=== PATIENT | male | born 1950 | race African-American/Black ===

== ENCOUNTER 2016-08-21 14:21 | Inpatient (IN) ==
--- NOTE | 2016-08-21 14:42 | Emergency Department Note ---
Disposition Clinical Impression: Ischemic cerebrovascular accident (CVA) of frontal lobe Disposition: Admitted As Inpatient Condition: Fair Time of Disposition: 18:50 Weakness HPI - General Chief complaint: ED Weakness Stated complaint: weakness Time Seen by Provider: 08/21/16 14:28 Source: EMS Mode of arrival: EMS Limitations: no limitations Nursing Notes Reviewed: Yes Vital Signs Reviewed: Yes - History of Present Illness HPI Narrative: 66-year-old male with history of hypertension, hyperlipidemia, GERD, no history of UT or stroke, presents with right hand weakness. Patient states that he had right hand weakness that started 2-3 days ago, he went to the [facility] urgent care where they did a negative CT of his head that showed some mild small vessel disease, but no obvious stroke, he is concerned about a stroke also about possible pinched nerve. Patient had cervical fusion, he thinks C5-C7 that was an anterior approach for left upper extremity paresthesias a few years ago. He has never had any weakness or pain in his right arm until these last few days. He states that his right hand all his fingers seem like they are working slowly. He is unable to have good dexterity when was unable to button his shirt this morning that [facility] He denies facial droop, weakness of his leg, slurred speech. Does not have a history of recent repetitive movement with his right hand, and has no history of carpal tunnel. Pt Subjective Complaint: focal weakness Duration: constant Location: RUE Pain Severity: mild If pain, quality: numbness Improves with: none Worsens with: none Associated symptoms: Reports: denies other symptoms - Related Data Home Medications Medication Instructions Recorded Confirmed Amlodipine [Norvasc] 5 mg PO DAILY 08/21/16 08/21/16 Aspirin [Lo-Dose Aspirin EC] 81 mg PO DAILY 08/21/16 08/21/16 Atorvastatin [Lipitor] 40 mg PO DAILY 08/21/16 08/21/16 Benazepril HCl [Lotensin] 40 mg PO DAILY 08/21/16 08/21/16 Ergocalciferol (VITAMIN D2) 50,000 unit PO QWEEK 08/21/16 08/21/16 [Vitamin D2] GlipiZIDE [Glipizide] 20 mg PO DAILY 08/21/16 08/21/16 Hydrochlorothiazide 25 mg PO DAILY 08/21/16 08/21/16 Metformin [Glucophage] 1,000 mg PO BID 08/21/16 08/21/16 Naproxen Sodium [Aleve] 220 mg PO BID 08/21/16 08/21/16 Allergies Allergy/AdvReac Type Severity Reaction Status Date / Time No Known Allergies Allergy Verified 08/21/16 15:04 Review of Systems: A 14 point ROS was obtained and was negative except as per below or as documented in the HPI. Constitutional: Denies: fever, chills, weakness, weight change Eyes: Denies: eye pain, eye discharge, vision change ENT: Denies: ear pain, throat pain, hearing loss, epistaxis, congestion, Cardiovascular: Denies: chest pain, palpitations, dyspnea on exertion, edema, syncope Respiratory: Denies: cough, dyspnea, wheezes, hemoptysis, stridor Gastrointestinal: Denies: abdominal pain, nausea, vomiting. diarrhea, constipation, hematemesis, hematochezia Genitourinary: Denies: urgency, dysuria, frequency, hematuria Musculoskeletal: Denies: back pain, neck pain, arthralgia, myalgia Integumentary: Denies: rash, abrasion, lesions Neurological right hand weakness, : Denies: headache,numbness, paresthesias, confusion, abnormal gait Psychiatric: Denies: anxiety, depression, suicidal thoughts, homicidal thoughts , Endocrine: Denies: fatigue Hematological/Lymphatic: Denies: easy bleeding, easy bruising Allergic/Immunologic: Denies: facial swelling, urticaria All systems ED: reviewed and negative except as stated. Past Medical History - Past Medical History Attestation: Yes The following information was validated with the patient. Source: patient Physical Exam General: alert and oriented, in NAD, appears stated age, is pleasant and cooperative to exam Head: NCAT, no lesions Eyes: sclera anicteric, conjunctiva normal, PERRLA bilaterally, EOMI Bilaterally Ears: normal inspection, external ear wnl Nose: nasal septum nondeviated, sinuses nontender Throat: good dentition, mucous membranes moist Neck: no lymphadenopathy, trachea midline no deviation, no JVD Resp: CTA bilaterally, no resp distress, symmetric chest rise, no wheezes, rales , or rhonchi bilaterally CV: RRR, normal S1 and S2, no m/g/r, Pulses +2 Rad, +2 DP/PT Back: normal inspection, no tenderness to palpation, Negative CVA tenderness bilaterally Neuro: 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 Otherwise normal neurologic exam A&O3, CN II-XII grossly intact bilaterally, no motor or sensory deficits bilaterally, gait normal, GCS 15 [id number] Ext: normal inspection, symmetric Active and Passive ROM UE and LE bilaterally , no pedal edema bilaterally Psych: normal mood, normal affect Skin: No rashes, skin warm, dry, intact Course Course Narrative: 66-year-old male with right hand weakness, given his weakness seems to be localized he did have some weakness with median and ulnar nerve testing, with good radial nerve testing I wonder if he has neuropathy, or a cervical impingement, we will get an MRI to evaluate his C-spine, I suspect a C6-C7 lesion, he does have a history of cervical fusion however had never had neurologic deficits on this side. Stroke is considered less likely however will get an MRI of his head as well and he does have known small vessel disease with some risk factors including hypertension hyperlipidemia and obesity. CT [facility], - Reevaluation(s) Reevaluation #1: Admitted to Dr Moore, ANGELICA given will consult neuro. - Consultations Consultation #1: SPoke with Dr Storey he recs ASA will see patient in AM. Time: 18:49 Vital Signs Temperature 98.1 F 08/21/16 14:42 Pulse Rate 80 08/21/16 14:42 Respiratory Rate 16 08/21/16 14:42 Blood Pressure 113/73 08/21/16 14:42 O2 Sat by Pulse Oximetry 99 08/21/16 14:42 Temperature 98.1 F 08/21/16 14:42 Pulse Rate 80 08/21/16 15:47 Respiratory Rate 16 08/21/16 15:47 Blood Pressure 135/78 08/21/16 15:47 O2 Sat by Pulse Oximetry 99 08/21/16 15:47 Oxygen Delivery Oxygen Delivery Nasal Cannula Weakness - MDM Narrative Medical decision making narrative: 66-year-old male with right hand weakness, new stroke the left precentral gyrus , admitted to medicine service in stable condition, I did consult neurology in the emergency department. Lab work EKG are in the paperwork sent from the [facility], reviewed and negative. - Differential Diagnosis Differential Diagnosis: Likely: acute myocardial infarction, sepsis/infection, metabolic - Medical Records Medical records reviewed: Yes I reviewed the patient's medical records. - Lab Data Lab results reviewed: Yes I reviewed the patient's lab results. Lab results narrative: Labs were reviewed and were normal, troponin within normal limits, CBC CMP unremarkable, please see skin intact mentation from the [facility] to review. - Radiology Data Radiology results reviewed: Yes I reviewed the patient's radiology results. - EKG Data EKG attestation: Yes I reviewed and interpreted this EKG. EKG shows normal: sinus rhythm Rate: normal (Review 12-lead EKG from the [facility] no significant ST segment elevations or depressions. Normal sinus rhythm) Rhythm: NSR NIH Stroke Scale - Level of Consciousness LOC: Alert - LOC Questions LOC Questions: Answers both correctly - LOC Commands LOC Commands: Performs both correctly - Best Gaze Best Gaze: Normal - Visual Visual: No visual loss - Facial Palsy Facial Palsy: Normal - Motor Arms Motor Arm-Left: No drift for 10 seconds Motor Arm-Right: Drift, does NOT hit bed - Motor Legs Motor Leg-Left: No drift for 5 seconds Motor Leg-Right: No drift for 5 seconds - Limb Ataxia Limb Ataxia: Absent of affected limb too weak to perform exam - Sensory Sensory: Normal - Best Language Best Language: No aphasia - Dysarthria Dysarthria: Normal - Extinction and Inattention Extinction and Inattention: Normal - NIHSS Total Score NIHSS Total Score: 1
--- NOTE | 2016-08-21 15:43 | Emergency Department Note ---
Disposition Clinical Impression: Ischemic cerebrovascular accident (CVA) of frontal lobe Disposition: Admitted As Inpatient Condition: Fair General Adult HPI - General Chief complaint: ED Neuro Symptoms/Deficit Stated complaint: weakness Time Seen by Provider: 08/21/16 14:28 Source: EMS Mode of arrival: EMS Limitations: no limitations - History of Present Illness Pain Scale: 0 - Related Data Home Medications Medication Instructions Recorded Confirmed Amlodipine [Norvasc] 5 mg PO DAILY 08/21/16 08/21/16 Benazepril HCl [Lotensin] 40 mg PO DAILY 08/21/16 08/21/16 Ergocalciferol (VITAMIN D2) 50,000 unit PO QWEEK 08/21/16 08/21/16 [Vitamin D2] GlipiZIDE [Glipizide] 20 mg PO DAILY 08/21/16 08/21/16 Hydrochlorothiazide 25 mg PO DAILY 08/21/16 08/21/16 Naproxen Sodium [Aleve] 220 mg PO BID 08/21/16 08/21/16 Previous Rx's Medication Instructions Recorded Aspirin [Lo-Dose Aspirin EC] 81 mg PO DAILY #30 tablet. 08/22/16 Atorvastatin [Lipitor] 40 mg PO DAILY #30 tablet 08/22/16 Metformin [Glucophage] 1,000 mg PO BID #40 tablet 08/22/16 Allergies Allergy/AdvReac Type Severity Reaction Status Date / Time No Known Allergies Allergy Verified 08/21/16 15:04 Past Medical History - Past Medical History Medical history: Reports: diabetes, GERD, hyperlipidemia, hypertension Psychiatric history: Reports: no psych history - Social History Smoking Status: Never smoker Smokeless Tobacco Status: No Alcohol use: Reports: none Drug use: Reports: none Physical Exam - General Limitations: no limitations General appearance: alert, in no apparent distress Course - Reevaluation(s) Reevaluation #1: I saw the patient with the resident, Dr. Alonso. Patient presents with weakness and loss of function of his right hand. On my physical exam he clearly has weakness to all function of the right hand and also feels there is some weakness to pronation against resistance. Distal neurologic and vascular examination are normal. Patient says he woke up from sleep with this problem but never felt any numbness or tingling. The question is whether this is an upper motor neuron issue or a lower motor neuron issue. I do not think the exam and story are clear enough to help us decide. We will get the MRI of the brain and cervical spine. Time: 15:43 Reevaluation #2: MRI shows CVA. Patient is not a candidate for TPA or emergent intervention given that his symptoms are two days old. He will be admitted to the hospital. Time: 17:40 Vital Signs Temperature 98.1 F 08/21/16 14:42 Pulse Rate 80 08/21/16 14:42 Respiratory Rate 16 08/21/16 14:42 Blood Pressure 113/73 08/21/16 14:42 O2 Sat by Pulse Oximetry 99 08/21/16 14:42 Temperature 98.4 F 08/22/16 19:06 Pulse Rate 97 08/22/16 19:06 Respiratory Rate 18 08/22/16 19:06 Blood Pressure 123/69 08/22/16 19:06 O2 Sat by Pulse Oximetry 97 08/22/16 19:06 Oxygen Delivery Oxygen Delivery Room Air Medical Decision Making - Lab Data Result diagrams: 08/22/16 05:31 Attestation Statement - Attestation Attestation: I, Dr. Calderon, examined this patient face to face and my medical decision- making was reviewed with Dr. Cheng, Resident Physician. I agree with the documented findings, disposition and treatment plan as described except to the extent set forth below. Please see my progress note for details.
[2016-08-21] MEDS ORDERED: Aspirin 81 MG TAB.CHEW PO ONE (17:23)
[2016-08-21] MEDS ORDERED: Acetaminophen 325 MG TABLET PO PRN (20:35)
[2016-08-21] MEDS ORDERED: *HR* Morphine 2 MG/ML SYRINGE IVP PRN (20:35)
[2016-08-21] MEDS ORDERED: Ondansetron 4 MG/2 ML VIAL IVP PRN (20:35)
[2016-08-21] MEDS ORDERED: Naloxone 0.4 MG/ML INJ IVP PRN (20:35)
[2016-08-21] MEDS ORDERED: D5% in Water 1,000 ML IV PRN (20:39)
[2016-08-21] MEDS ORDERED: Dextrose Gel 15 GM PO PRN ×2 (20:39)
[2016-08-21] MEDS ORDERED: *HR* Dextrose 50 % in Water (Syg) 50 ML SYRINGE IVP PRN (20:39)
--- NOTE | 2016-08-21 20:43 | Internal Med History&Physical ---
<Rosendo Hanson - Last Filed: 08/21/16 20:38> Date of Encounter: 08/21/16 Time of Encounter: 08:10 Assessment and Plan (1) CVA (cerebral vascular accident) Current visit: Yes Status: Acute With residual right upper extremity weakness MRI: acute infarct of the left precentral gyrus. Further workup includes: Echocardiogram, Carotid ultrasound. Labs: HbA1c, and lipid panel in the AM Consult to neurology (Dr. Storey was contacted by the ED) Consult to physical therapy Restart the patient on Aspirin The patient was admitted as an inpatient as he will stay more than 2 midnights. He is at high risk for an additional CVA. Qualifiers: CVA mechanism: occlusion Precerebral and cerebral artery: unspecified cerebral artery Qualified Code(s): I63.50 - Cerebral infarction due to unspecified occlusion or stenosis of unspecified cerebral artery (2) Diabetes Current visit: Yes Status: Acute Abo-dbvxond-gybteyxbi diabetes Type 2 Continue patients metformin sliding scale insulin HbA1c In the AM Qualifiers: Diabetes mellitus type: type 2 Diabetes mellitus complication status: without complication Diabetes mellitus terminologist insulin use: without terminologist use Qualified Code(s): E11.9 - Type 2 diabetes mellitus without complications (3) Essential hypertension Current visit: Yes Status: Acute Continue home medications of amlodipine, benazepril, and HCTZ. Well controlled in the ED at 127/72 (4) Hyperlipidemia Current visit: Yes Status: Acute Lipid panel in the morning. Continue home medication of Lipitor Qualifiers: Hyperlipidemia type: unspecified Qualified Code(s): E78.5 - Hyperlipidemia , unspecified (5) Morbid obesity with BMI of 40.0-44.9, adult Current visit: Yes Status: Acute (6) DVT prophylaxis Current visit: Yes Status: Acute SQ Heparin Omeprazole for GI prophylaxis. Time spent on this admission 40mins. DNR [facility] DNI Internal Medicine - H&P: HPI Chief complaint: right hand weakness Admitted From: Emergency Dept Plans for Post Hospital Care: Home History of present illness: Mr. Thompson is a 66 year old male with PMH of HTN, HLD, GERD, DM type 2 who presented to the urgent care at the [facility] for right hand weakness. The patient was sent to [facility] for further evaluation. The patient states that he was having weakness of his right hand which started 2 to 3 days ago. His who was in the room states he was talking more slowly around the time he was having the right hand weakness, but this resolved. There was no slurring of his speech. Denies any facial droop, leg weakness, headache. He states the earlier today he was unable to the button shirt due to the weakness of his right hand and that is what caused him to come in for further evaluation. He has never had an NV or a stroke previously. The patient was previously on a baby aspirin, but had stopped this drug in April for a cervical fusion procedure, and not restarted since then. Past Med Surg Social Fam HX - Past Medical History Medical history: diabetes, GERD, hyperlipidemia, hypertension Psychiatric history: no psych history - Past Surgical History Surgical History: orthopedic, other (C6-C7 spinal fusion, tonsillectomy, cyst removal) - Social History Smoking Status: Never smoker Smokeless Tobacco Status: No Alcohol use: none Drug use: none - Family History Mother Living Status: Hx Family Musculoskeletal Disorders: Yes (Rheumatoid arthritis) Hx Family Neurologic Disorders: Yes (Stroke) Father Living Status: Hx Family Cancer: Yes (prostate) Internal Medicine - H&P: Meds Amlodipine [Norvasc] 5 mg PO DAILY 08/21/16 [History] Aspirin [Lo-Dose Aspirin EC] 81 mg PO DAILY 08/21/16 [History] Atorvastatin [Lipitor] 40 mg PO DAILY 08/21/16 [History] Benazepril HCl [Lotensin] 40 mg PO DAILY 08/21/16 [History] Ergocalciferol (VITAMIN D2) [Vitamin D2] 50,000 unit PO QWEEK 08/21/16 [History] GlipiZIDE [Glipizide] 20 mg PO DAILY 08/21/16 [History] Hydrochlorothiazide 25 mg PO DAILY 08/21/16 [History] Metformin [Glucophage] 1,000 mg PO BID 08/21/16 [History] Naproxen Sodium [Aleve] 220 mg PO BID 08/21/16 [History] Allergies No Known Allergies Allergy (Verified 08/21/16 15:04) All Systems PM: A 10-system review of systems was performed and is negative for pertinent findings except as documented above in the HPI. - Constitutional Constitutional: no chills, no fever(s), no night sweats - EENT Eyes: change in vision (Right eye blurriness, resolved spontaneously), no discharge, no pain, no photophobia Ears: no ear discharge, no ear pain, no tinnitus Nose, mouth and throat: no dysphagia, no nasal discharge, no neck pain, no sore throat - Cardiovascular Cardiovascular ROS IM: no chest pain, no diaphoresis, no dyspnea, no lightheadedness, no palpitations, no syncope - Respiratory Respiratory: no cough, no dyspnea, no wheezing, no excessive phlegm production - Gastrointestinal Gastrointestinal: no abdominal pain, no diarrhea, no hematemesis, no hematochezia, no melena, no nausea, no vomiting - Musculoskeletal Musculoskeletal ROS IM: no numbness, no tingling - Integumentary Integumentary IM: no rash, no unusual bruising - Neurological Neurological ROS: focal weakness (right hand), no confusion, no convulsions, no numbness, no tingling, no tremor(s) - Hematologic/Lymphatic Hematologic/Lymphatic: no easy bruising - Constitutional Vitals: Temp Pulse Resp BP Pulse Ox 98.1 F 81 18 133/76 99 08/21/16 14:42 08/21/16 18:57 08/21/16 18:57 08/21/16 18:52 08/21/16 16:52 General appearance: Present: A&O X 3, pleasant, no acute distress - Head Head exam: Present: atraumatic, normocephalic - Eye Eye exam: Present: PERRL, conjuntiva pink, sclera anicteric Pupils: Present: PERRL - Neck Neck exam general surgery: Present: supple, trachea midline. Absent: lymphadenopathy - Respiratory Respiratory exam: Present: CTAB. Absent: accessory muscle use, rales, rhonchi, wheezes - Cardiovascular Cardiovascular exam: Present: RRR, +S1, +S2. Absent: diastolic murmur, gallop, rubs, systolic murmur Additional comments: No carotid bruits - Expanded Cardiovascular Exam Peripheral pulses: 2+: Radial (L), Radial (R) - GI/Abdominal GI/Abdominal exam: Present: normal bowel sounds, soft, no peritoneal signs. Absent: distended, tenderness Additional comments: obese - Extremities Exam Extremities exam: Present: warm, radial pulses palpable and symetrical. Absent : calf tenderness, cyanotic, pedal edema - Neurological Exam Neurological exam: Present: CN II-XII intact, oriented X3, pronater drift. Absent: strengths equal and symetr throughout, facial droop, speech deficit - Expanded Neurological Exam Cerebellar function: finger to nose: Abnormal Right (slow) Sensory exam: upper extremity light touch: Normal Neuro motor strength exam: LUE: 5, RUE: 4 (brand director strenth only. biceps and shoulder 5/5), LLE: 5, RLE: 5 - Skin Skin exam: Present: dry, intact - Attending Attestation I examined this patient and my medical decision-making was reviewed with the SALES SERVICE SUPERVISOR/PA/Advanced Practice Nurse/Resident Physician. I agree with the documented findings, disposition and treatment plan as described except to the extent set forth below. <Chavo Henriquez H - Last Filed: 08/21/16 21:02> Date of Encounter: 08/21/16 Internal Medicine - H&P: HPI History of present illness: Mr. Thompson is a 66 year old male All Systems PM: A 10-system review of systems was performed and is negative for pertinent findings except as documented above in the HPI. - Constitutional Vitals: Temp Pulse Resp BP Pulse Ox 98.1 F 81 18 133/76 99 08/21/16 14:42 08/21/16 18:57 08/21/16 18:57 08/21/16 18:52 08/21/16 16:52 - Attending Attestation Acute CVA Not candidate for TPA
[2016-08-21] MEDS ORDERED: 0.9 % Sodium Chloride 1,000 ML IVC SCH (20:45)
[2016-08-21] MEDS ORDERED: Insulin LISPRO 300 UNITS/3 ML VIAL SQ SCH (21:00)
[2016-08-21] MEDS: Aspirin 81 MG TAB.CHEW PO SCH (22:12)
[2016-08-21] MEDS: *HR* Heparin 5,000 UNIT/ML VIAL SQ SCH (22:12)
[2016-08-22] MEDS: *HR* Heparin 5,000 UNIT/ML VIAL SQ SCH ×2 (06:01→15:20)
[2016-08-22 06:04] LABS: BUN/Creatinine Ratio 15 (6-26); Blood Urea Nitrogen 12 mg/dL (8-26); Calcium 9.1 mg/dL (8.6-10.8); Carbon Dioxide 27 mEq/L (19-29); Chloride 105 mEq/L (98-109); Chol/HDL Ratio 4.3 (0-4.9); Cholesterol 104 mg/dL (< 200); Glucose 256 mg/dL (70-99); HDL Cholesterol 24 mg/dL (40-59); LDL Cholesterol,Calculated 60 mg/dL (0-99); Osmolality,Calculated 295 (280-300); Potassium 3.5 mEq/L (3.5-4.5); Sodium 138 mEq/L (136-145); Triglycerides 98 mg/dL (< 150); eGFR For African Americans > 60 (> 60); eGFR For Non-African Americans > 60 (> 60)
[2016-08-22] MEDS ORDERED: *HR* GlipiZIDE XL (24 HR) 10 MG TABLET PO SCH (09:00)
[2016-08-22] MEDS ORDERED: Lisinopril 20 MG TABLET PO SCH (09:00)
[2016-08-22] MEDS ORDERED: amLODIPine 5 MG TABLET PO SCH (09:00)
[2016-08-22] MEDS ORDERED: hydroCHLOROthiazide 25 MG TABLET PO SCH (09:00)
--- NOTE | 2016-08-22 10:05 | Neurology - Consult Note ---
<Oren Urbano - Last Filed: 08/22/16 13:07> Date of Encounter: 08/22/16 Time of Encounter: 11:54 Assessment and Plan (1) CVA (cerebral vascular accident) Current Visit: Yes Status: Acute Brain MRI 08/21/16: Acute infarct within the left precentral gyrus. He reports a purely motor loss to the right hand consistent with infarction in his left precentral gyrus. Recommended restart the patient on low-dose aspirin. Echo and carotid Doppler studies have been performed, pending results. Recommend PT for right hand weakness. Patient has family at home that are able to assist him with ADLs. Echo reports no evidence of PFO. Doppler study has not resulted. Stable from a neurologic standpoint for discharge once his carotid US has resulted and is wnl. Will discuss with Dr. Storey for further recommendations. Qualifiers: CVA mechanism: occlusion Precerebral and cerebral artery: unspecified cerebral artery Qualified Code(s): I63.50 - Cerebral infarction due to unspecified occlusion or stenosis of unspecified cerebral artery History of Present Illness Chief complaint: CVA HPI: Mr. Thompson is a 66 year old male hx of HTN, HLD, DMII who initially presented to the hospital due to right hand weakness. Patient reports that he was having weakness in his right hand starting 2-3 days ago. Patient was seen at the [facility] and sent to the emergency department for evaluation. Reportedly had a negative CT scan of the head there. His reports during the right hand weakness he also seemed to be talking more slowly but that resolved. No history of TIA or CVA in the past. Of note he was on a low-dose aspirin but stopped taking it for a spinal procedure in April and never restarted. Patient reports he had an anterior spinal fusion of C6-C7 and was told to stop taking his aspirin until he was told to restart it. Patient had a brain MRI in the emergency department which showed an acute infarct of the left precentral gyrus. Patient admitted to the hospital for full CVA workup. He currently states that he still feels weak in his right hand but it has improved. He is right-hand dominant. He denies any numbness, tingling, paresthesias, headaches , visual changes, slurred speech or any other complaints. Past Med Surg Social Fam HX - Past Medical History Attestation: Yes The following information was validated with the patient. Source: patient, old records reviewed Medical history: diabetes, GERD, hyperlipidemia, hypertension Psychiatric history: no psych history - Past Surgical History Surgical History: orthopedic, other - Social History Smoking Status: Never smoker Smokeless Tobacco Status: No Alcohol use: none Drug use: none - Family History Mother Living Status: Hx Family Musculoskeletal Disorders: Yes (Rheumatoid arthritis) Hx Family Neurologic Disorders: Yes (Stroke) Father Living Status: Hx Family Cancer: Yes (prostate) Medications and Allergies Amlodipine [Norvasc] 5 mg PO DAILY 08/21/16 [History] Aspirin [Lo-Dose Aspirin EC] 81 mg PO DAILY 08/21/16 [History] Atorvastatin [Lipitor] 40 mg PO DAILY 08/21/16 [History] Benazepril HCl [Lotensin] 40 mg PO DAILY 08/21/16 [History] Ergocalciferol (VITAMIN D2) [Vitamin D2] 50,000 unit PO QWEEK 08/21/16 [History] GlipiZIDE [Glipizide] 20 mg PO DAILY 08/21/16 [History] Hydrochlorothiazide 25 mg PO DAILY 08/21/16 [History] Metformin [Glucophage] 1,000 mg PO BID 08/21/16 [History] Naproxen Sodium [Aleve] 220 mg PO BID 08/21/16 [History] Allergies No Known Allergies Allergy (Verified 08/21/16 15:04) All Systems: A 10-system review of systems was performed and is negative for pertinent findings except as documented above in the HPI. - Constitutional Constitutional ROS IM: no fever(s), no weakness - Cardiovascular Cardiovascular ROS IM: no chest pain - Respiratory Respiratory IM: no dyspnea - Gastrointestinal Gastrointestinal: no abdominal pain - Musculoskeletal Musculoskeletal ROS IM: muscle weakness (Right hand), no abnormal gait, no neck pain, no numbness - Neurological Neurological ROS: focal weakness (Right hand), no abnormal gait, no abnormal speech, no confusion, no disequilibrium, no dizziness, no headache(s), no loss of vision, no sensory deficit, no weakness, no other visual disturbances Physical Examination - Vital Signs Vital Signs: Initial Vital Signs Temp Pulse Resp BP Pulse Ox 98.1 F 80 16 113/73 99 08/21/16 14:42 08/21/16 14:42 08/21/16 14:42 08/21/16 14:42 08/21/16 14:42 - Constitutional General appearance: comfortable - Neurologic Sensorimotor examination: intact Detailed motor examination: grossly full strength in all extremities (With the exception of the right hand. Patient exhibits 4/5 muscle strength in the right hand compared to the left. He is able to make a fist which he reports he was not able to do 2 days ago. No atrophy or unintentional movement.) Motor examination - right side: 4/5: wrist flexion, flat breakdown processor, 5/5: deltoids, triceps , wrist extension Motor examination - left side: 5/5: deltoids, biceps, triceps, wrist flexion, wrist extension Detailed sensory examination: intact Reflex and gait examination: intact Mental Status Examination: awake, alert, oriented to person, oriented to place, oriented to time, follows commands appropriately, answers questions appropriately, no aphasia, makes eye contact Cranial nerve examination: PERRL, EOMI, visual powers intact, sensory to face intact, mastication intact, no facial asymmetry is present, no dysarthria, hearing is intact symmetrically, tongue protrudes midline, no atrophy or facial fasiculations present Cerebellar examination: no dysmetria, performs finger to nose and heel to lund symmetrically without ataxia Results - Laboratory Findings CBC and BMP: 08/22/16 05:31 Abnormal lab findings: Abnormal lab results Glucose 256 mg/dL (70-99) H 08/22/16 05:31 POC Glucose 239 (58-89) H 08/22/16 08:16 Hemoglobin A1c 9.0 % (-5.6) H 08/22/16 05:31 HDL Cholesterol 24 mg/dL (40-59) L 08/22/16 05:31 - Diagnostic Findings Additional findings: Brain MRI 08/21/16: Acute infarct within the left precentral gyrus. Consult Discharge Plan - Plan Instructions: Stress (DC), Stress (GEN), Diabetes Mellitus Type 2 in Adults (DC ), Ischemic Stroke (DC), Ischemic Stroke (GEN), Chronic Hypertension (DC), Left Hemispheric Stroke (DC), Left Hemispheric Stroke (GEN), Self Care Measures After a Stroke (DC), Self Care Measures After a Stroke (GEN), Dizziness (GEN) Referrals: Unassigned,Provider [Non-Partnered Physician] - <Jack Storey - Last Filed: 08/22/16 16:38> Date of Encounter: 08/22/16 Time of Encounter: 16:27 Assessment and Plan (1) CVA (cerebral vascular accident) Current Visit: Yes Status: Acute Patient has suffered a small infarct in the left parietal lobe region. More than likely this is small vessel infarct resulting from his risk factors which include hypertension, hyperlipidemia and diabetes mellitus. Echocardiogram was essentially normal. Carotid duplex Doppler study is pending. If the carotid Doppler study reveals a greater than 70% stenosis involving the left internal carotid artery, then vascular consultation would be indicated. At this point I would simply recommend resuming the aspirin 81 mg daily and aggressive management of his stroke risk factors particularly his diabetes. His hemoglobin A1c was 9.0. I believe the PT and OT can be given on an outpatient basis since he has help at home, and his gait is stable. He does not present as a fall risk. I will reevaluate him at your request. The documentation in the history of HPI and plan were at least partially created by [employer] voice recognition technology by Dr. Storey. Errors in grammar, wording or other phrases may exist. If errors are found after the documentation signed, they will be addressed individually in the addendum section of this document when appropriate. Qualifiers: CVA mechanism: occlusion Precerebral and cerebral artery: unspecified cerebral artery Qualified Code(s): I63.50 - Cerebral infarction due to unspecified occlusion or stenosis of unspecified cerebral artery History of Present Illness HPI: Mr. Thompson is a 66 year old male who was seen and examined independently for right hand weakness. The chart was reviewed independently. I agree with the history stated as above by Dr. Urbano. I did personally review the MRI scan of the brain which does reveal a small acute infarct in the left lobe. I also reviewed the cervical MRI scan which revealed degenerative as well as postsurgical changes. All Systems: A 10-system review of systems was performed and is negative for pertinent findings except as documented above in the HPI. Review of Systems: 10 point review of systems is consistent with a history of present illness and is otherwise negative. Physical Examination - Vital Signs Vital Signs: Initial Vital Signs Temp Pulse Resp BP Pulse Ox 98.1 F 80 16 113/73 99 08/21/16 14:42 08/21/16 14:42 08/21/16 14:42 08/21/16 14:42 08/21/16 14:42 - Neurologic Motor examination - right side: 3/5: triceps, flat breakdown processor, 4/5: deltoids, biceps, hip flexors, 5/5: tibialis Anterior, quadriceps, toe extension (EHL), plantarflexion Reflex and gait examination: other (Deep tendon reflexes are diminished throughout.) Mental Status Examination: no agnosia, no aproxia Results - Laboratory Findings CBC and BMP: 08/22/16 05:31 Abnormal lab findings: Abnormal lab results Glucose 256 mg/dL (70-99) H 08/22/16 05:31 POC Glucose 239 (58-89) H 08/22/16 08:16 Hemoglobin A1c 9.0 % (-5.6) H 08/22/16 05:31 HDL Cholesterol 24 mg/dL (40-59) L 08/22/16 05:31
[2016-08-22] MEDS: Insulin LISPRO 300 UNITS/3 ML VIAL SQ SCH ×3 (10:59→17:34)
--- NOTE | 2016-08-22 10:59 | ECHO - Doppler Report ---
Echo with Saline Contrast Name: Jack Thompson Date of Study: 08/22/2016 Date: 1950 Ht: 71.0 in Medical Record#: [id number] Age: 66 Wt: 287.0 lb Gender: Male BSA: 2.46 Order #: [id number] Location: [facility] Room #: [id number] Reading Physician: Sincere Tamez DO, CHRISTINE, ELIZABETH HERNANDEZ Orthopedic Specialist: Richard Sanchez Ordering Physician: Chavo Henriquez MD Primary Physician: Jack Cortes MD Indications: Cerebrovascular Accident Impressions: LVEF 60-65%. Normal LV chamber size, wall thickness and function. Mild left ventricular diastolic dysfunction. Normal right ventricular structure and function. No evidence of PFO with agitated saline contrast. No evidence of pulmonary hypertension. No significant valvular dysfunction. Left Ventricular Wall Motion: Rest Echo Findings All wall segments showed normal motion. Findings: Study Quality * Technically adequate exam. ECG Findings * Normal sinus rhythm. Left Ventricle * LVEF 60-65%. * Normal LV chamber size, wall thickness and function. * Mild left ventricular diastolic dysfunction. Right Ventricle * Normal right ventricular structure and function. Left Atrium * Mildly dilated left atrium. Right Atrium * Normal right atrial size. Interatrial Septum * No evidence of PFO with agitated saline contrast. Aortic Valve * Trileaflet aortic valve. * Mildly sclerotic aortic valve leaflets. * No aortic regurgitation. * No aortic stenosis. Mitral Valve * Normal mitral valve structure and function. * No mitral regurgitation. * No mitral stenosis. Tricuspid Valve * Normal tricuspid valve structure and function. * Trace tricuspid regurgitation. * No evidence of pulmonary hypertension. Pulmonic Valve * Normal pulmonic valve structure and function. * No pulmonic regurgitation. Aorta * Normally sized aortic root. Pericardium * The pericardium appears normal. IVC * Normal IVC dimensions and inspiratory collapse. Pulmonary Artery * Normal visualized portions of the main pulmonary artery. History Hypertension Diabetes Hypercholesteremia Rheumatic Fever Contrast: Agitated saline 20 ml. Measurements: BP: 146/ 74 2D Normal Values RVIDd: 2.67 cm <2.7 cm IVSd: .80 cm 0.6 - 1.0 cm LVIDd: 4.35 cm 3.7 - 5.6 cm LVPWd: .80 cm 0.6 - 1.1 cm LVIDs: 2.96 cm 1.5 - 3.6 cm AO: 2.50 cm < 4.0 cm LA: 3.90 cm 2.0 - 4.0cm %FS: 32.00 cm >25 % LA volume: 44 Mitral Valve Peak E:.83 m/sec Peak A:.83 m/sec E/A Ratio:1 Peak E' Lat Madhav:13.6 cm/s Peak E' Med Madhav:9.14 cm/s E/E' Lat Ratio:6.1 E/E' Med Ratio:9.1 Tricuspid Valve TV Regurg Peak Grad: 19.00mmHg TV Regurg Peak Madhav: 2.20m/sec Updated by Sincere Tamez DO, FACIvania, MARY, ELIZABETH on 08/22/2016 10:54:03 AM electronically signed on 08/22/2016 10:54:42 AM with status of Final Wall Motion Villalba: 1=Normal, 2=Hypokinesis, 3=Akinesis, 4=Dyskinesis, 5=Aneurysmal, 6=Hyperkinetic, X=Not Visualized (Blank)=Missing
[2016-08-22] MEDS: Aspirin 81 MG TAB.CHEW PO SCH (11:04)
[2016-08-22] MEDS: *HR* Metformin 500 MG TABLET PO SCH ×2 (11:08→17:34)
--- NOTE | 2016-08-22 14:10 | Internal Med Progress Note ---
<Amarjit Merrill - Last Filed: 08/22/16 15:44> Date of Encounter: 08/22/16 Time of Encounter: 14:07 - Assessment and plan (1) CVA (cerebral vascular accident) Current Visit: Yes Status: Acute Assessment and plan: Evidenced clinically and by Brain MRI: Acute infarct within the left precentral gyrus. Neurology on board, appreciate recs. Echo EF 60-65%, no evidence of PFO, no PAH/VHD Reviewed OT note, recommend for dc home when medically appropriate. Await Carotid US studies. Cont ASA, Statin, BG control. Qualifiers: CVA mechanism: occlusion Precerebral and cerebral artery: unspecified cerebral artery Qualified Code(s): I63.50 - Cerebral infarction due to unspecified occlusion or stenosis of unspecified cerebral artery (2) Diabetes Current Visit: Yes Status: Acute Assessment and plan: A1C 9.0, appropriate for insulin regimen. Qualifiers: Diabetes mellitus type: type 2 Diabetes mellitus complication status: without complication Diabetes mellitus terminal operator insulin use: without terminal operator use Qualified Code(s): E11.9 - Type 2 diabetes mellitus without complications (3) Essential hypertension Current Visit: Yes Status: Acute Assessment and plan: Controlled on current medication. (4) Hyperlipidemia Current Visit: Yes Status: Acute Assessment and plan: Cont Lipitor 40mg QD Qualifiers: Hyperlipidemia type: unspecified Qualified Code(s): E78.5 - Hyperlipidemia , unspecified (5) Morbid obesity with BMI of 40.0-44.9, adult Current Visit: Yes Status: Acute Assessment and plan: Counseled on lifestyle and diet modifications. (6) DVT prophylaxis Current Visit: Yes Status: Acute Assessment and plan: Hep 5000 U SC TID - Subjective Interval history: Patient seen/evaluated, he was at [facility] earlier this morning. Study reviewed, EF 60-65%, no evidence of PFO, no PAH/VHD. 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 Still difficulty bringing right index and thumb to close, but improved. Has not seen PT/OT yet. He denies feeling skipped beats or palpitations, no chest pain/pressure. - Constitutional Vitals: Temp Pulse Resp BP Pulse Ox 98.3 F 74 16 145/64 95 08/22/16 11:59 08/22/16 11:59 08/22/16 11:59 08/22/16 11:59 08/22/16 11:59 General appearance: Present: A&O X 3, pleasant, no acute distress - Head Head exam: Present: atraumatic, normocephalic - Eye Eye exam: Present: EOMI, sclera anicteric - ENT ENT exam: Present: mucous membranes moist - Neck Neck exam general surgery: Present: supple, trachea midline - Respiratory Respiratory exam: Present: CTAB. Absent: rhonchi, wheezes - Cardiovascular Cardiovascular exam: Present: +S1, +S2. Absent: JVD - GI/Abdominal GI/Abdominal exam: Present: soft, no peritoneal signs. Absent: tenderness - Extremities Exam Extremities exam: Present: warm, radial pulses palpable and symetrical. Absent : pedal edema - Neurological Exam Neurological exam: Absent: strengths equal and symetr throughout (Right hand, handgrip Str 4/5, biceps and triceps 5/5. DTR on brachioradialis 3/4), pronater drift, facial droop, speech deficit Additional comments: no unsteady gait Internal Medicine: Result - Labs CBC & Chem 7: 08/22/16 05:31 Labs: BMP 08/22/16 05:31 Sodium 138 Potassium 3.5 Chloride 105 Carbon Dioxide 27 BUN 12 Creatinine 0.81 Glucose 256 H Calcium 9.1 Consult Discharge Plan - Plan Instructions: Stress (DC), Stress (GEN), Diabetes Mellitus Type 2 in Adults (DC ), Ischemic Stroke (DC), Ischemic Stroke (GEN), Chronic Hypertension (DC), Left Hemispheric Stroke (DC), Left Hemispheric Stroke (GEN), Self Care Measures After a Stroke (DC), Self Care Measures After a Stroke (GEN), Dizziness (GEN) Referrals: Unassigned,Provider [Non-Partnered Physician] - ([facility] physician in 1-2 weeks) Jack Storey DO [Partnered Physician] - (1-2 weeks, f/u ischemic stroke, consider holter.) Prescriptions: Aspirin [Lo-Dose Aspirin EC] 81 mg PO DAILY #30 tablet. Atorvastatin [Lipitor] 40 mg PO DAILY #30 tablet Metformin [Glucophage] 1,000 mg PO BID #40 tablet <Vernon Marti - Last Filed: 08/22/16 18:21> Date of Encounter: 08/22/16 - Constitutional Vitals: Temp Pulse Resp BP Pulse Ox 98.4 F 79 16 107/67 98 08/22/16 16:04 08/22/16 16:04 08/22/16 16:04 08/22/16 16:04 08/22/16 16:04 Internal Medicine: Result - Labs CBC & Chem 7: 08/22/16 05:31 Labs: BMP 08/22/16 05:31 Sodium 138 Potassium 3.5 Chloride 105 Carbon Dioxide 27 BUN 12 Creatinine 0.81 Glucose 256 H Calcium 9.1 - Attending Attestation I examined this patient and my medical decision-making was reviewed with the LAND MEASURER/PA/Advanced Practice Nurse/Resident Physician. I agree with the documented findings, disposition and treatment plan as described except to the extent set forth below. Ishcemic CVA, will discharge him home today. Continue with aspirin. Follow neurology recommendations.
[2016-08-22] MEDS ORDERED: Potassium Chloride Elixir 20 MEQ/15 ML UDC PO ONE (15:49)
[2016-08-22] MEDS ORDERED: Magnesium Oxide 400 MG TABLET PO ONE (15:50)
--- NOTE | 2016-08-22 17:57 | Discharge Summary ---
<Amarjit Merrill - Last Filed: 08/22/16 17:54> Date of Encounter: 08/22/16 Time of Encounter: 17:54 - Discharge Diagnosis (1) CVA (cerebral vascular accident) Priority: Primary Status: Acute Qualifiers: CVA mechanism: occlusion Precerebral and cerebral artery: unspecified cerebral artery Qualified Code(s): I63.50 - Cerebral infarction due to unspecified occlusion or stenosis of unspecified cerebral artery (2) Diabetes Priority: Primary Status: Chronic Qualifiers: Diabetes mellitus type: type 2 Diabetes mellitus complication status: without complication Diabetes mellitus halfway insulin use: without intermediate card tender use Qualified Code(s): E11.9 - Type 2 diabetes mellitus without complications (3) Essential hypertension Priority: Primary Status: Chronic (4) Hyperlipidemia Priority: Primary Status: Chronic Qualifiers: Hyperlipidemia type: unspecified Qualified Code(s): E78.5 - Hyperlipidemia , unspecified (5) Morbid obesity with BMI of 40.0-44.9, adult Priority: Secondary Status: Chronic (6) DVT prophylaxis Priority: Primary Status: Acute - Discharge Medications Prescriptions: Aspirin [Lo-Dose Aspirin EC] 81 mg PO DAILY #30 tablet. Atorvastatin [Lipitor] 40 mg PO DAILY #30 tablet Metformin [Glucophage] 1,000 mg PO BID #40 tablet Home Medications: Amlodipine [Norvasc] 5 mg PO DAILY 08/21/16 [History] Benazepril HCl [Lotensin] 40 mg PO DAILY 08/21/16 [History] Ergocalciferol (VITAMIN D2) [Vitamin D2] 50,000 unit PO QWEEK 08/21/16 [History] GlipiZIDE [Glipizide] 20 mg PO DAILY 08/21/16 [History] Hydrochlorothiazide 25 mg PO DAILY 08/21/16 [History] Naproxen Sodium [Aleve] 220 mg PO BID 08/21/16 [History] Aspirin [Lo-Dose Aspirin EC] 81 mg PO DAILY #30 tablet. 08/22/16 [Rx] Atorvastatin [Lipitor] 40 mg PO DAILY #30 tablet 08/22/16 [Rx] Metformin [Glucophage] 1,000 mg PO BID #40 tablet 08/22/16 [Rx] Allergies/Adverse Reactions: Allergies No Known Allergies Allergy (Verified 08/21/16 15:04) Procedures/tests Complete & Pending: Procedures Performed prior 72 hours Category Date Time Status EV carotid duplex imaging BI Routine Y 08/22/16 20:50 Completed EV echocardiogram Routine Y 08/22/16 20:50 Completed Date of admission: 08/21/16 20:49 Primary care physician: PCP OR Consults: 08/21/16 20:50 Consult to Physical Therapy [CONS] Routine Comment: Evaluate, develop and implement POC Consult to Pick Pulling Machine Operator [CONS] Routine Reason for SW Consult: . 08/22/16 11:26 Consult to Occupational Therapy [CONS] Routine Comment: Evaluate, develop and implement POC Discharging clinician: Vernon Marti Anticipated date of discharge: 08/22/16 - Patient Status Disposition: Home, Self-Care Condition: Fair Functional capacity at discharge: independent ambulation Overall status at discharge: patient is progressing back to baseline - Discharge Instructions Instructions: Stress (DC), Stress (GEN), Diabetes Mellitus Type 2 in Adults (DC ), Ischemic Stroke (DC), Ischemic Stroke (GEN), Chronic Hypertension (DC), Left Hemispheric Stroke (DC), Left Hemispheric Stroke (GEN), Self Care Measures After a Stroke (DC), Self Care Measures After a Stroke (GEN), Dizziness (GEN) Follow Up With: Unassigned,Provider [Non-Partnered Physician] - ([facility] physician in 1-2 weeks) Jack Storey, [Partnered Physician] - (1-2 weeks, f/u ischemic stroke, consider holter.) - Diet and Activity Activity: increase activity as tolerated Diet: diabetic diet, low fat, low cholesterol Hospital course: Mr. Thompson is a 66 year old male with PMH of HTN, HLD, GERD, DM type 2 who presented to the urgent care at the OR for right hand weakness. The patient was sent to [place] for further evaluation on 08/21/2016. The patient states that he was having weakness of his right hand which started 2 to 3 days ago. Patient commenced on CVA workup. Brain MRI would disclose: Acute infarct within the left precentral gyrus. 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 Labs with HgbA1C of 9.0, Lipid panel LDL 60, TG 98, HDL 24 Neurology service was consulted for further recommendations, recommends for continuing ASA, Statin, aggressive risk factor modification. Echo EF 60-65%, no evidence of PFO, no PAH/VHD Preliminary US: Nonstenotic plaque bilaterally Telemetry monitoring, no evidence of Afib. PT/OT eval, no estimated OT needs at discharge, PT eval pt does not require skilled PT services at this time, recommend dc to home once medically appropriate. At time of discharge, patient was clinically improved, hemodynamically stable, agreeable to plan of care. Counseled on blood sugar control, and he wants [facility] Follow up with neurology in 2 weeks. Consider possible Holter monitor. Continue ASA, Statin, blood pressure control. Patient advised to seek immediate medical attention for any new or worsening symptoms including but not limited to worsening headache, fever , chills, weakness, slurred speech, facial droop and he voiced understanding. - Time Spent with Patient Total time spent providing and/or coordinating discharge services: Greater than 30 minutes - Constitutional Vitals: Temp Pulse Resp BP Pulse Ox 98.4 F 79 16 107/67 98 08/22/16 16:04 08/22/16 16:04 08/22/16 16:04 08/22/16 16:04 08/22/16 16:04 General appearance: Present: A&O X 3, pleasant, no acute distress - Head Head exam: Present: atraumatic, normocephalic - Eye Eye exam: Present: EOMI, sclera anicteric - ENT ENT exam: Present: mucous membranes moist - Neck Neck exam general surgery: Present: full ROM, normal inspection, supple, trachea midline. Absent: lymphadenopathy - Respiratory Respiratory exam: Present: CTAB. Absent: wheezes, tachypnea - Cardiovascular Cardiovascular exam: Present: +S1, +S2. Absent: irregular rhythm, JVD, systolic murmur - GI/Abdominal GI/Abdominal exam: Present: soft, no peritoneal signs. Absent: tenderness - Extremities Exam Extremities exam: Present: warm, radial pulses palpable and symetrical. Absent : pedal edema - Neurological Exam Neurological exam: Absent: abnormal gait, strengths equal and symetr throughout ((Right hand, handgrip Str 4/5, biceps and triceps 5/5. DTR on brachioradialis 3 /4)), pronater drift, facial droop, speech deficit <Vernon Marti - Last Filed: 08/22/16 18:21> Date of Encounter: 08/22/16 Procedures/tests Complete & Pending: Procedures Performed prior 72 hours Category Date Time Status EV carotid duplex imaging BI Routine Y 08/22/16 20:50 Completed EV echocardiogram Routine Y 08/22/16 20:50 Completed Date of admission: 08/21/16 20:49 Primary care physician: [facility] Consults: 08/21/16 20:50 Consult to Physical Therapy [CONS] Routine Comment: Evaluate, develop and implement POC Consult to Pick Pulling Machine Operator [CONS] Routine Reason for SW Consult: . 08/22/16 11:26 Consult to Occupational Therapy [CONS] Routine Comment: Evaluate, develop and implement POC Hospital course: Mr. Thompson is a 66 year old male - Time Spent with Patient Total time spent providing and/or coordinating discharge services: - Constitutional Vitals: Temp Pulse Resp BP Pulse Ox 98.4 F 79 16 107/67 98 08/22/16 16:04 08/22/16 16:04 08/22/16 16:04 08/22/16 16:04 08/22/16 16:04 - Attending Attestation examined this patient and my medical decision-making was reviewed with the COUNTRY PRINTER/ PA/Advanced Practice Nurse/Resident Physician. I agree with the documented findings, disposition and treatment plan as described except to the extent set forth below. Ishcemic CVA, will discharge him home today. Continue with aspirin. Follow neurology recommendations.
[2016-08-22 19:08] VITALS: BP 123/69
--- NOTE | 2016-08-23 07:13 | Carotid Imaging Report ---
Carotid Duplex Patient Name:Jack Thompson Order Number:[id number] Procedure Date:08/22/2016 Date:9Age:66 yrs Gender:Male Location:[facility] Room #: 2NE35 [place] Hand Loom:Richard Sanchez Referring MD:Chavo Henriquez MD salvationist:Jack Cortes MD Reading MD:Billy Grover MD Primary Indications:CVA Risk Factors Yes/No Hypertension Yes Diabetes Yes Smoking Current Yes Impressions: Findings: Bilateral carotid system has nonstenotic plaque. Recommendations: After imaging the patient returned to their room. Findings Carotid Duplex: Right: The right proximal common carotid artery has a PSV of 106 cm/s and a EDV of 15 cm/s. The right mid common carotid artery has a PSV of 129 cm/s and a EDV of 19 cm/s. The right distal common carotid artery has a PSV of 94 cm/s and a EDV of 16 cm/s. There is nonstenotic plaque in the right bifurcation with a PSV of 53 cm/s and a EDV of 12 cm/s. There is calcified plaque. There is nonstenotic plaque in the right proximal internal carotid artery with a PSV of 44 cm/s and a EDV of 11 cm/s. There is smooth calcified plaque. The right mid internal carotid artery has a PSV of 58 cm/s and a EDV of 19 cm/s. The right distal internal carotid artery has a PSV of 70 cm/s and a EDV of 24 cm/s. The right eca has a PSV of 146 cm/s and a EDV of 13 cm/s. The right vertebral artery has a PSV of 83 cm/s and a EDV of 23 cm/s. Left: The left proximal common carotid artery has a PSV of 193 cm/s and a EDV of 27 cm/s. The left mid common carotid artery has a PSV of 149 cm/s and a EDV of 23 cm/s. The left distal common carotid artery has a PSV of 110 cm/s and a EDV of 20 cm/s. There is nonstenotic plaque in the left bifurcation with a PSV of 51 cm/s and a EDV of 11 cm/s. There is irregular, heterogeneous calcified plaque. There is nonstenotic plaque in the left proximal internal carotid artery with a PSV of 55 cm/s and a EDV of 19 cm/s. There is smooth, heterogeneous calcified plaque. There is nonstenotic plaque in the left mid internal carotid artery with a PSV of 93 cm/s and a EDV of 26 cm/s. There is smooth heterogeneous plaque. The left distal internal carotid artery has a PSV of 91 cm/s and a EDV of 28 cm/s. The left eca has a PSV of 109 cm/s and a EDV of 13 cm/s. The left vertebral artery has a PSV of 46 cm/s and a EDV of 9 cm/s. Prior Study: No prior study available for comparison. Carotid Results Right PSV EDV Assessment Proximal CCA 106 15 Normal Mid CCA 129 19 Normal Distal CCA 94 16 Normal Bifurcation 53 12 Non Stenotic Plaque Proximal ICA 44 11 Non Stenotic Plaque Mid ICA 58 19 Normal Distal ICA 70 24 Normal ECA 146 13 Normal Vertebral Artery 83 23 Normal Left PSV EDV Assessment Proximal CCA 193 27 Normal Mid CCA 149 23 Normal Distal CCA 110 20 Normal Bifurcation 51 11 Non Stenotic Plaque Proximal ICA 55 19 Non Stenotic Plaque Mid ICA 93 26 Non Stenotic Plaque Distal ICA 91 28 Normal ECA 109 13 Normal Vertebral Artery 46 9 Normal Ratio's Right ICA/CCA Ratio: 0.54 ICA/CCA Values: 70/129 Left ICA/CCA Ratio: 0.62 ICA/CCA Values: 93/149 Updated by Billy Grover MD on 08/23/2016 7:06:06 AM electronically signed on 08/23/2016 7:06:17 AM with status of Final
== END 2016-08-22 20:04 | disposition home or self-care (01) | DRG 65 ==
LOC: EMEROO 14:21 → 2NENU 14:21 → SUATTDRO 20:49
PROVIDERS: ADMIT Internal Medicine; ATTEND Internal Medicine

== ENCOUNTER 2016-10-23 02:05 | Inpatient (IN) ==
[2016-10-23 02:41] LABS: Basophils # 0.1 K/mcL (0.0-0.2); Basophils % 0.5 %; Eosinophils # 0.6 K/mcL (0.0-0.6); Eosinophils % 6.3 %; Hematocrit 39.6 % (37.5-50.1); Hemoglobin 13.7 g/dL (12.9-16.9); Immature Granulocytes % 0.2 % (0-4); Immature Platelets 2.8 % (1.1-6.1); Lymphocytes # 2.7 K/mcL (0.6-4.6); Lymphocytes % 29.4 %; Mean Corpuscular HGB Conc 34.6 g/dL (31.6-35.5); Mean Corpuscular Volume 86.8 fL (83.0-100.0); Mean Platelet Volume 9.7 fL (9.4-12.4); Monocytes # 0.7 K/mcL (0.0-1.3); Monocytes % 7.6 %; Neutrophils # 5.1 K/mcL (1.6-8.9); Platelet Count 182 K/mcL (140-400); Red Blood Count 4.56 M/mcL (4.19-5.50); Red Cell Distribution Width 12.4 % (11.5-14.5)
[2016-10-23 02:46] LABS: INR 1.1
[2016-10-23 02:49] LABS: Activated Partial Thrombo Time 30.8 Seconds (26.0-36.0)
[2016-10-23 02:54] LABS: BUN/Creatinine Ratio 15 (6-26); Blood Urea Nitrogen 13 mg/dL (8-26); Calcium 9.5 mg/dL (8.6-10.8); Carbon Dioxide 23 mEq/L (19-29); Chloride 106 mEq/L (98-109); Glucose 161 mg/dL (70-99); Osmolality,Calculated 290 (280-300); Potassium 3.5 mEq/L (3.5-4.5); Sodium 138 mEq/L (136-145); eGFR For African Americans > 60 (> 60); eGFR For Non-African Americans > 60 (> 60)
[2016-10-23] MEDS ORDERED: Aspirin 81 MG TAB.CHEW PO ONE (03:06)
[2016-10-23] MEDS ORDERED: Alteplase (Activase) 81 MG in EMPTY BAG 1 EACH IVPB ONE (03:26)
[2016-10-23] MEDS ORDERED: Alteplase (Activase) 9 MG in EMPTY BAG 1 EACH IVP ONE (03:31)
[2016-10-23 03:52] LABS: Bilirubin,Urine Negative (Negative); Blood,Urine Negative (Negative); Clarity,Urine Cloudy (Clear); Color,Urine Yellow (Yellow); Glucose,Urine (UA) Normal (Normal); Ketones,Urine Negative (Negative); Leukocyte Esterase,Urine Negative (Negative); Nitrite,Urine Negative (Negative); PH,Urine 5.5 pH Units (5.0-8.0); Protein,Urine Negative (Neg-Trace); Specific Gravity,Urine 1.024 (1.010-1.025); Urobilinogen,Urine Normal (Normal)
[2016-10-23 03:54] LABS: Bacteria,Urine None Seen per hpf (None-Few); Hyaline Casts,Urine None Seen per lpf (None-Few); Squamous Epithelial Cell,Urine Many per lpf (None-Few); WBC,Urine 0-3 per hpf (0-3)
--- NOTE | 2016-10-23 03:54 | Emergency Department Note ---
Disposition Clinical Impression: CVA (cerebral vascular accident) Disposition: Admitted As Inpatient Condition: Fair Time of Disposition: 03:58 Neuro HPI - General Chief Complaint: ED Neuro Symptoms/Deficit Stated Complaint: facial droop Time Seen by Provider: 10/23/16 02:11 Source: patient, EMS Limitations: no limitations Nursing Notes Reviewed: Yes Vital Signs Reviewed: Yes - History of Present Illness HPI Narrative: 66 male with acute onset of right-sided facial droop and weakness, no upper or lower extremity deficits, patient with previous CVA 2 months ago in August and he had right-sided paresthesias of sensory improved. Patient denies any current upper lower extremity deficits, he was sitting in bed with his and she knows that he was slurring his words and his right face was drooping approximately 12:30 PM today. 2 hours prior to ED arrival. Stroke alert was called and evaluated at 02 12, Onset of Symptoms Date: 10/23/16 Onset of Symptoms Time: 00:30 Symptom Onset Unknown: Yes Timing confirmed by: spouse Location: right face, dysarthria History of same: Yes Severity: mild Quality: weakness, numbness Symptoms Improving: No Improves with: none Worsens with: none Context: sudden onset On Anticoagulants: Yes (Aspirin 81 mg) Associated symptoms: Reports: denies other symptoms. Denies: confusion, chest pain, cough, diaphoresis, fever/chills Treatments Prior to Arrival: none - Related Data Home Medications: Home Medications Medication Instructions Recorded Confirmed Amlodipine [Norvasc] 5 mg PO DAILY 08/21/16 10/23/16 Benazepril HCl [Lotensin] 40 mg PO DAILY 08/21/16 10/23/16 Ergocalciferol (VITAMIN D2) 50,000 unit PO QWEEK 08/21/16 10/23/16 [Vitamin D2] GlipiZIDE [Glipizide] 20 mg PO DAILY 08/21/16 10/23/16 Hydrochlorothiazide 25 mg PO DAILY 08/21/16 10/23/16 Previous Rx's Medication Instructions Recorded Aspirin [Lo-Dose Aspirin EC] 81 mg PO DAILY #30 tablet. 08/22/16 Atorvastatin [Lipitor] 40 mg PO DAILY #30 tablet 08/22/16 Metformin [Glucophage] 1,000 mg PO BID #40 tablet 08/22/16 Allergies/Adverse Reactions: Allergies Allergy/AdvReac Type Severity Reaction Status Date / Time No Known Allergies Allergy Verified 08/21/16 15:04 Review of Systems: All systems were reviewed with historian and negative except as per below, or as documented in the HPI. Constitutional: Denies: fever, chills, weight changes Eyes: Denies: vision changes, eye pain ENT: Denies: nasal congestion, sore throat CV: Denies: chest pain, palpitations Resp: Denies: cough, dyspnea, wheezes, hemoptysis GI: Denies: abdominal pain, N/V/D/C Denies: dysuria, hematuria MSK: Denies: back pain, neck pain, extremity pain Skin: Denies: new rashes, new lesions Neuro:+ for facial weakness and slurred speech. Psych: Denies: anxiety, depression All systems ED: reviewed and negative except as stated. Past Medical History - Past Medical History Attestation: Yes The following information was validated with the patient. Source: patient Medical history: Reports: CVA, diabetes, GERD, hyperlipidemia, hypertension Surgical history: Reports: orthopedic, other Psychiatric history: Reports: no psych history - Social History Smoking Status: Never smoker Smokeless Tobacco Status: No Alcohol use: Reports: none Drug use: Reports: none Physical Exam Constitutional: alert and oriented, confusion, vital signs within normal limits. HEENT: NCAT, sclera anicteric, PERRLA bilaterally, normal external ears bilaterally, nasal septum nondeviated, average dentition, MMM Neck: normal inspection, neck is supple, trachea midline Resp: normal chest inspection, CTA bilaterally, no resp distress CV: RRR, no m/g/r GI: normal inspection, Soft, NTND, BS present Back: normal inspection, no tenderness to palpation Neuro: A&O3, slurred speech and dysarthria, right-sided facial weakness, with forehead sparing, upper and lower extremity strength is 5 out of 5, and ages 3 MSK: normal inspection, bilateral UE and LE with normal ROM Psych: normal mood, normal affect Skin: No rashes, skin warm, dry, intact - General Limitations: no limitations General appearance: alert, in no apparent distress Course Course Narrative: 66-year-old with acute onset of right facial droop or slurred speech and some sensory deficit to his right face, history of CVA 2 months ago, stroke alert called is less than well was 12:30. Stroke alert was called at 212, ED arrival was approximately 210. NH initial was 3. he does have rule out criteria of recent ischemic CVA. - Reevaluation(s) Reevaluation #1: Added to hospitalist service. Please see nursing note for timing and documentation - Consultations Consultation #1: Zack has a neurologist, recommended that secondary to an NIH of 3 just facial symptoms, no extremity symptoms, and previous CVA in the last 3 months, he had a ischemic CVA 2 months ago, he recommended against TPA, MRI inpatient stroke workup at [place] is appropriate, Consultation #2: I spoke with Dr. Prieto, he agrees to see the patient before, recommends MRI as inpatient admission to hospitalist. Vital Signs Temperature 98.7 F 10/23/16 02:08 Pulse Rate 96 10/23/16 02:08 Respiratory Rate 18 10/23/16 02:08 Blood Pressure 151/81 10/23/16 02:08 O2 Sat by Pulse Oximetry 97 10/23/16 02:08 Temperature 98.4 F 10/23/16 11:24 Pulse Rate 82 10/23/16 11:24 Respiratory Rate 16 10/23/16 11:24 Blood Pressure 128/70 10/23/16 11:24 O2 Sat by Pulse Oximetry 94 L 10/23/16 07:00 Oxygen Delivery Oxygen Delivery Room Air Neuro Symptoms/Deficit - Differential Diagnosis Likely: cerebrovascular accident, convulsions - Medical Records Medical records reviewed: Yes I reviewed the patient's medical records. - Lab Data Lab results reviewed: Yes I reviewed the patient's lab results. Result diagrams: 10/23/16 02:31 10/23/16 02:31 Lab Results 10/23/16 10/23/16 10/23/16 Range/Units 02:12 02:31 02:31 WBC 9.2 (4.3-11.1) K/mcL RBC 4.56 (4.19-5.50) M/mcL Hgb 13.7 (12.9-16.9) g/dL Hct 39.6 (37.5-50.1) % MCV 86.8 (83.0-100.0) fL MCH 30.0 (28.0-33.3) pg MCHC 34.6 (31.6-35.5) g/dL RDW 12.4 (11.5-14.5) % Plt Count 182 (140-400) K/mcL MPV 9.7 (9.4-12.4) fL Immature Gran % 0.2 (0-4) % Seg Neutrophils % 56.0 % Lymphocytes % 29.4 % Monocytes % 7.6 % Eosinophils % 6.3 % Basophils % 0.5 % Neutrophils # 5.1 (1.6-8.9) K/mcL Lymphocytes # 2.7 (0.6-4.6) K/mcL Monocytes # 0.7 (0.0-1.3) K/mcL Eosinophils # 0.6 (0.0-0.6) K/mcL Basophils # 0.1 (0.0-0.2) K/mcL Immature Plt Fraction 2.8 (1.1-6.1) % PT 12.0 (9.4-12.1) Seconds INR 1.1 APTT 30.8 (26.0-36.0) Seconds Sodium (136-145) mEq/L Potassium (3.5-4.5) mEq/L Chloride (98-109) mEq/L Carbon Dioxide (19-29) mEq/L BUN (8-26) mg/dL Creatinine (0.72-1.25) mg/dL Est GFR ( Amer) (> 60) Est GFR (Non-Af Amer) (> 60) BUN/Creatinine Ratio (6-26) Glucose (70-99) mg/dL POC Glucose 149 H (58-89) Calculated Osmolality (280-300) Calcium (8.6-10.8) mg/dL Troponin I (0-0.03) ng/mL 10/23/16 10/23/16 Range/Units 02:31 02:31 WBC (4.3-11.1) K/mcL RBC (4.19-5.50) M/mcL Hgb (12.9-16.9) g/dL Hct (37.5-50.1) % MCV (83.0-100.0) fL MCH (28.0-33.3) pg MCHC (31.6-35.5) g/dL RDW (11.5-14.5) % Plt Count (140-400) K/mcL MPV (9.4-12.4) fL Immature Gran % (0-4) % Seg Neutrophils % % Lymphocytes % % Monocytes % % Eosinophils % % Basophils % % Neutrophils # (1.6-8.9) K/mcL Lymphocytes # (0.6-4.6) K/mcL Monocytes # (0.0-1.3) K/mcL Eosinophils # (0.0-0.6) K/mcL Basophils # (0.0-0.2) K/mcL Immature Plt Fraction (1.1-6.1) % PT (9.4-12.1) Seconds INR APTT (26.0-36.0) Seconds Sodium 138 (136-145) mEq/L Potassium 3.5 (3.5-4.5) mEq/L Chloride 106 (98-109) mEq/L Carbon Dioxide 23 (19-29) mEq/L BUN 13 (8-26) mg/dL Creatinine 0.85 (0.72-1.25) mg/dL Est GFR ( Amer) > 60 (> 60) Est GFR (Non-Af Amer) > 60 (> 60) BUN/Creatinine Ratio 15 (6-26) Glucose 161 H (70-99) mg/dL POC Glucose (58-89) Calculated Osmolality 290 (280-300) Calcium 9.5 (8.6-10.8) mg/dL Troponin I 0.00 (0-0.03) ng/mL - Radiology Data Radiology results reviewed: Yes I reviewed the patient's radiology results. Head CT 10/23/16 02:15 IMPRESSION: 1. No acute intracranial process. 2. Small remote lacunar infarcts within the left caudate head and anterior left centrum semi ovale. 3. Mild age-related cerebral atrophy with chronic small vessel ischemic disease. Findings were discussed with Jem Rome at 2:35 am on 10/23/2016. D/ / Mike Castro MD / Mike Castro MD Interpreting Provider: Mike Castro MD - EKG Data EKG attestation: Yes I reviewed and interpreted this EKG. EKG shows normal: sinus rhythm Rate: normal Rhythm: NSR Dougherty/QRS: normal NIH Stroke Scale - Level of Consciousness LOC: Alert - LOC Questions LOC Questions: Answers both correctly - LOC Commands LOC Commands: Performs both correctly - Best Gaze Best Gaze: Normal - Visual Visual: No visual loss - Facial Palsy Facial Palsy: Minor asymmetry on smiling, flattened nasolabial fold - Motor Arms Motor Arm-Left: No drift for 10 seconds Motor Arm-Right: No drift for 10 seconds - Motor Legs Motor Leg-Left: No drift for 5 seconds Motor Leg-Right: No drift for 5 seconds - Limb Ataxia Limb Ataxia: Absent of affected limb too weak to perform exam - Sensory Sensory: Mild to moderate loss, "not as sharp" - Best Language Best Language: No aphasia - Dysarthria Dysarthria: Mild, slurs some words - Extinction and Inattention Extinction and Inattention: Normal - NIHSS Total Score NIHSS Total Score: 3 TPA Checklist - Eligibilty for IV tPA 1. LKW equal to or less than 4.5 hours be before treatment: Yes 2. Clinical diagnosis of ischemic stroke causing deficit: Yes 3. Age 18 years or older: No - Contraindications 4. Evidence of intracranial hemorrhage on pretreatment CT: No 5. Presentation suggests subarachnoid hem, even if CT normal: No 6. CT shows multilobar infarction: No 7. History of intracranial hemorrhage: No 8. Known neoplasm, arteriovenous malformation, or aneurysm: No 9. Significant head trauma (w/ LOC) or CVA in last 3 months: Yes 10. Intracranial or intraspinal surgery in 3 months: No 11. Arterial puncture at non-compressable site/LP in 7 days: No 12. BP elevated (systolic > 185 or diastolic > 110): No 13. Abnormal Blood Glucose (<50 or >400mg/dl): No 14. Active internal bleeding: No 15. Known bleeding risk (including; not limited to 16-18): No 16. Heparin/argatroban/bivalirudin w/in 48hrs & PTT > normal: No 17. Platelet count less than 100,000/MM3: No 18. Current or recent use of anticoagualants (see protocol): No - Relative Contraindications 19. Only minor or rapidly improving stroke symptoms: Yes Critical Care Time Critical Care Time: Yes Total Critical Care Time: 35 Attestation: The high probability of a clinically significant, sudden or life threatening deterioration of the [nuerologic] system(s) required my full and direct attention, intervention and personal management. The aggregate critical care time was [35] minutes. This time is in addition to time spent performing reported procedures but includes the following: [X] Data Review and interpretation [X] Patient assessment and monitoring of vital signs [X] Documentation [X] Medication orders and management Attestation Statement - Attestation Attestation: I personally interviewed and examined this patient and my medical decision- making was reviewedand discussed with the ED Resident Physician, Dr. Alonso. I agree with the documented findings, disposition and treatment plan as described in the documentation. Pt presented with new onset R facial droop and mildly slurred speech, within the past 3 hours. Pt with recent hx CVA with residual RUE weakness that occurred in Aug 2016. NIHSS=3 on arrival. Pt sent emergently for CT scanning, and initial CT read neg by rad. [facility] stroke network consulted and per evaluation pt not a candidate for tPA due to NIHSS=3, and recent CVA. Will admit for further neurologic evaluation and mgmt. Pt remained stable overtime with no worsening/improvement of his sxs. VSS.
--- NOTE | 2016-10-23 04:07 | Internal Med History&Physical ---
Date of Encounter: 10/23/16 Time of Encounter: 03:45 Assessment and Plan (1) CVA (cerebral vascular accident) Current visit: No Status: Suspected Acute suspected cerebrovascular accident. Observation. Neurology consulted. MRI and MRA of the brain. On aspirin and statin. Will add Plavix. Qualifiers: CVA mechanism: occlusion Precerebral and cerebral artery: unspecified cerebral artery Qualified Code(s): I63.50 - Cerebral infarction due to unspecified occlusion or stenosis of unspecified cerebral artery (2) Diabetes Current visit: No Status: Chronic Monitor blood sugars. Sliding scale insulin. Diabetic diet. Qualifiers: Diabetes mellitus type: type 2 Diabetes mellitus complication status: without complication Diabetes mellitus specialized developer insulin use: without fpc use Qualified Code(s): E11.9 - Type 2 diabetes mellitus without complications (3) Essential hypertension Current visit: Yes Status: Chronic Blood pressure is currently well controlled. Continue to monitor blood pressure and resume home medications. Internal Medicine - H&P: HPI Chief complaint: Right-sided facial droop and slurred speech Admitted From: Emergency Dept Plans for Post Hospital Care: Home History of present illness: Mr. Thompson is a 66 year old male history of diabetes, CVA, hyperlipidemia, hypertension presented to the ER with complaints of right-sided facial droop. His symptoms began at approximately 12:30 AM. It was noted to have right- sided facial droop by his and he was also apparently slurring his words. He denies any other focal weakness or numbness. No seizure-like activity. No palpitations. No bowel bladder incontinence. In August, he was hospitalized with right upper extremity weakness. He was found to have acute infarct in the left precentral guide us. At that time the patient had stopped taking aspirin due to impending neck surgery. As such he was placed back on aspirin and statin and discharged home. He was not found to have any abnormal rhythm or significant carotid artery stenosis. Currently, he has been taking aspirin and statin as prescribed. Past Med Surg Social Fam HX - Past Medical History Medical history: CVA, diabetes, GERD, hyperlipidemia, hypertension Psychiatric history: no psych history - Past Surgical History Surgical History: orthopedic, other - Social History Smoking Status: Never smoker Smokeless Tobacco Status: No Alcohol use: none Drug use: none - Family History Mother Living Status: Hx Family Neurologic Disorders: Yes (Stroke) Father Living Status: Hx Family Cancer: Yes (prostate) Internal Medicine - H&P: Meds Amlodipine [Norvasc] 5 mg PO DAILY 08/21/16 [History] Benazepril HCl [Lotensin] 40 mg PO DAILY 08/21/16 [History] Ergocalciferol (VITAMIN D2) [Vitamin D2] 50,000 unit PO QWEEK 08/21/16 [History] GlipiZIDE [Glipizide] 20 mg PO DAILY 08/21/16 [History] Hydrochlorothiazide 25 mg PO DAILY 08/21/16 [History] Naproxen Sodium [Aleve] 220 mg PO BID 08/21/16 [History] Aspirin [Lo-Dose Aspirin EC] 81 mg PO DAILY #30 tablet.dr 08/22/16 [Rx] Atorvastatin [Lipitor] 40 mg PO DAILY #30 tablet 08/22/16 [Rx] Metformin [Glucophage] 1,000 mg PO BID #40 tablet 08/22/16 [Rx] Allergies No Known Allergies Allergy (Verified 08/21/16 15:04) All Systems PM: A 10-system review of systems was performed and is negative for pertinent findings except as documented above in the HPI. - Constitutional Constitutional: no chills, no fever(s), no night sweats - EENT Eyes: no change in vision, no discharge, no pain, no photophobia Ears: no ear discharge, no ear pain, no tinnitus Nose, mouth and throat: no dysphagia, no nasal discharge, no neck pain, no sore throat - Cardiovascular Cardiovascular ROS IM: no chest pain, no diaphoresis, no dyspnea, no lightheadedness, no palpitations, no syncope - Respiratory Respiratory: no cough, no dyspnea, no wheezing, no excessive phlegm production - Gastrointestinal Gastrointestinal: no abdominal pain, no diarrhea, no hematemesis, no hematochezia, no melena, no nausea, no vomiting - Musculoskeletal Musculoskeletal ROS IM: no numbness, no tingling - Integumentary Integumentary IM: no rash, no unusual bruising - Neurological Neurological ROS: abnormal speech, other (Facial droop), no confusion, no convulsions, no focal weakness, no numbness, no tingling, no tremor(s) - Hematologic/Lymphatic Hematologic/Lymphatic: no easy bruising - Constitutional Vitals: Temp Pulse Resp BP Pulse Ox 98.7 F 85 16 106/63 96 10/23/16 02:08 10/23/16 03:05 10/23/16 03:53 10/23/16 03:53 10/23/16 03:05 General appearance: Present: cooperative, A&O X 3, no acute distress, answers questions appropriately - Head Head exam: Present: atraumatic, normocephalic - Eye Eye exam: Present: PERRL, conjuntiva pink, sclera anicteric Pupils: Present: PERRL - ENT ENT exam: Present: mucous membranes moist - Neck Neck exam general surgery: Present: supple, trachea midline. Absent: lymphadenopathy - Respiratory Respiratory exam: Present: CTAB. Absent: accessory muscle use, rales, rhonchi, wheezes - Cardiovascular Cardiovascular exam: Present: RRR, +S1, +S2. Absent: diastolic murmur, gallop, rubs, systolic murmur - GI/Abdominal GI/Abdominal exam: Present: normal bowel sounds, soft, no peritoneal signs. Absent: distended, tenderness - Extremities Exam Extremities exam: Present: warm, radial pulses palpable and symetrical. Absent : calf tenderness, cyanotic, pedal edema - Neurological Exam Neurological exam: Present: alert, CN II-XII intact, oriented X3, no focal deficits, facial droop (Involving the right lower half of face). Absent: pronater drift, speech deficit Additional comments: Normal sensation. Strength 5/5 in left upper and lower extremity and right lower extremity. Right upper extremity hand review analyst strength is 4 /5. Just of the upper extremity has 5 /5 strength - Skin Skin exam: Present: dry, intact Internal Med - H&P Results - Labs CBC & Chem 7: 10/23/16 02:31 10/23/16 02:31 - Attending Attestation This document has been at least partially created by [employer] recognition technology by Dr. Her. Errors in grammar, wording or other phrases may exist. If errors are found after the documentation is signed, they will be addressed individually in the addendum section of this document when appropriate.
[2016-10-23] MEDS ORDERED: Acetaminophen 325 MG TABLET PO PRN (04:15)
[2016-10-23] MEDS: *HR* Heparin 5,000 UNIT/ML VIAL SQ SCH ×2 (05:59→17:22)
[2016-10-23] MEDS ORDERED: Lisinopril 20 MG TABLET PO SCH (09:00)
[2016-10-23] MEDS ORDERED: amLODIPine 5 MG TABLET PO SCH (09:00)
[2016-10-23] MEDS ORDERED: hydroCHLOROthiazide 25 MG TABLET PO SCH (09:00)
[2016-10-23] MEDS: Aspirin 81 MG TAB.CHEW PO SCH (10:31)
[2016-10-23] MEDS ORDERED: D5% in Water 1,000 ML IV PRN (11:27)
[2016-10-23] MEDS ORDERED: *HR* Dextrose 50 % in Water (Syg) 50 ML SYRINGE IVP PRN (11:27)
[2016-10-23] MEDS ORDERED: Dextrose Gel 15 GM PO PRN ×2 (11:27)
--- NOTE | 2016-10-23 14:03 | Neurology - Consult Note ---
Date of Encounter: 10/23/16 Time of Encounter: 14:01 Assessment and Plan (1) Ischemic cerebrovascular accident (CVA) of frontal lobe Current Visit: No Status: Acute Patient's MRI revealed small left frontal and parietal infarcts. Right facial droop only deficit. No other deficits noted. Patient already on ASA and statin. Discharge patient on plavix with continued ASA therapy. Echo pending (2) Essential hypertension Current Visit: Yes Status: Chronic Blood pressure control important. (3) Hyperlipidemia Current Visit: Yes Status: Chronic Qualifiers: Hyperlipidemia type: unspecified Qualified Code(s): E78.5 - Hyperlipidemia , unspecified (4) Diabetes Current Visit: No Status: Chronic Glucose control important Qualifiers: Diabetes mellitus type: type 2 Diabetes mellitus complication status: without complication Diabetes mellitus longterm insulin use: without longterm use Qualified Code(s): E11.9 - Type 2 diabetes mellitus without complications History of Present Illness Chief complaint: Right facial droop HPI: Mr. Thompson is a 66 year old male with previous history of CVA roughly 2 months ago arrives to the [facility] ED after experiencing right sided facial droop noticed by his . The patient denied any other symptoms at that time. Stroke alert called. CT head negative for acute process. [facility] neurologist recommended against tPA given recent CVA and NIH of 3. Patient admitted. MRI of brain revealed small, acute left frontal and parietal infarcts. Patient's MRA <50% bilaterally. He does state that maybe 2 days prior to facial droop he had a transient dizziness. Denies any other complaints at this time. Past Med Surg Social Fam HX - Past Medical History Attestation: Yes The following information was validated with the patient. Source: patient, old records reviewed Medical history: CVA, diabetes, GERD, hyperlipidemia, hypertension Psychiatric history: no psych history - Past Surgical History Surgical History: orthopedic, other - Social History Smoking Status: Never smoker Smokeless Tobacco Status: No Alcohol use: none Drug use: none - Family History Mother Living Status: Hx Family Cardiac Disorders: No Hx Family Respiratory Disorders: No Hx Family Cancer: Yes Hx Family GI Disorders: No Hx Family Genitourinary Disorders: No Hx Family Endocrine Disorder: Yes Hx Family Musculoskeletal Disorders: No Hx Family Neuromuscular Disorders: No Hx Family Neurologic Disorders: Yes (Stroke) Hx Family HEENT Disorders: No Hx Family Autoimmune Disorders: No Hx Family Reproductive Disorders: No Hx Family Psychosocial Disorders: No Hx Family Medical Disorders: No Father Living Status: Hx Family Cardiac Disorders: No Hx Family Respiratory Disorders: No Hx Family Cancer: Yes (prostate) Hx Family GI Disorders: No Hx Family Genitourinary Disorders: No Hx Family Endocrine Disorder: Yes Hx Family Musculoskeletal Disorders: No Hx Family Neuromuscular Disorders: No Hx Family Neurologic Disorders: Yes Hx Family Autoimmune Disorders: No Hx Family Reproductive Disorders: No Hx Family Psychosocial Disorders: No Hx Family Medical Disorders: No Medications and Allergies Amlodipine [Norvasc] 5 mg PO DAILY 08/21/16 [History] Benazepril HCl [Lotensin] 40 mg PO DAILY 08/21/16 [History] Ergocalciferol (VITAMIN D2) [Vitamin D2] 50,000 unit PO QWEEK 08/21/16 [History] GlipiZIDE [Glipizide] 20 mg PO DAILY 08/21/16 [History] Hydrochlorothiazide 25 mg PO DAILY 08/21/16 [History] Aspirin [Lo-Dose Aspirin EC] 81 mg PO DAILY #30 tablet. 08/22/16 [Rx] Atorvastatin [Lipitor] 40 mg PO DAILY #30 tablet 08/22/16 [Rx] Metformin [Glucophage] 1,000 mg PO BID #40 tablet 08/22/16 [Rx] Allergies No Known Allergies Allergy (Verified 08/21/16 15:04) All Systems: A 10-system review of systems was performed and is negative for pertinent findings except as documented above in the HPI. - Neurological Neurological ROS: dizziness Physical Examination - Vital Signs Vital Signs: Initial Vital Signs Temp Pulse Resp BP Pulse Ox 98.7 F 96 18 151/81 97 10/23/16 02:08 10/23/16 02:08 10/23/16 02:08 10/23/16 02:08 10/23/16 02:08 - Constitutional General appearance: comfortable - Neurologic Sensorimotor examination: intact Detailed motor examination: full strength in all major muscle groups Motor examination - right side: 5/5: deltoids, biceps, triceps, wrist flexion, wrist extension, counter clerk farm equipment parts, hip flexors, tibialis Anterior, quadriceps, toe extension (EHL), plantarflexion Motor examination - left side: 5/5: deltoids, biceps, triceps, wrist flexion, wrist extension, hip flexors, counter clerk farm equipment parts, quadriceps, tibialis Anterior, toe extension (EHL), plantarflexion Detailed sensory examination: intact Mental Status Examination: awake, alert, oriented to person, oriented to place, oriented to time, follows commands appropriately, answers questions appropriately, no agnosia, no aphasia, no aproxia Cranial nerve examination: PERRL, EOMI, visual powers intact, corneal reflexes brisk symmetrically, sensory to face intact, mastication intact, no dysarthria, hearing is intact symmetrically, soft palate elevates bilaterally upon phonation , gag reflex intact, flexes SCM and trapezius muscles symmetrically with full power, tongue protrudes midline, no atrophy or facial fasiculations present Cranial Nerve Exam: facial droop: Right Cerebellar examination: no dysmetria, performs finger to nose and heel to lund symmetrically without ataxia, no truncal ataxia, no difficulty with rapid alternating movements Results - Laboratory Findings CBC and BMP: 10/23/16 02:31 10/23/16 02:31 Abnormal lab findings: Abnormal lab results Glucose 161 mg/dL (70-99) H 10/23/16 02:31 POC Glucose 149 (58-89) H 10/23/16 02:12 Urine Clarity Cloudy (Clear) A 10/23/16 03:38 Urine Microscopic RBC 3-5 per hpf (0-3) H 10/23/16 03:38 Ur Squamous Epith Cells Many per lpf (None-Few) H 10/23/16 03:38 - Attending Attestation I examined this patient and my medical decision-making was reviewed with the Resident Physician. I agree with the documented findings, disposition and treatment plan as described except to the extent set forth below. Consult Discharge Plan - Plan Referrals: NO,PCP [Non-Partnered Physician] -
[2016-10-23] MEDS: Insulin LISPRO 300 UNITS/3 ML VIAL SQ SCH ×2 (17:14→17:19)
--- NOTE | 2016-10-23 20:07 | Internal Med Progress Note ---
Date of Encounter: 10/23/16 Time of Encounter: 10:00 - Assessment and plan (1) Essential hypertension Current Visit: Yes Status: Chronic Assessment and plan: Will hold blood pressure medication now to maintain relatively high blood pressure (2) Hyperlipidemia Current Visit: Yes Status: Chronic Assessment and plan: Continue statin treatment Qualifiers: Hyperlipidemia type: unspecified Qualified Code(s): E78.5 - Hyperlipidemia , unspecified (3) DVT prophylaxis Current Visit: No Status: Acute Assessment and plan: Heparin subcutaneously (4) Diabetes Current Visit: No Status: Chronic Assessment and plan: Sliding-scale coverage Qualifiers: Diabetes mellitus type: type 2 Diabetes mellitus complication status: without complication Diabetes mellitus long-term insulin use: without long-term use Qualified Code(s): E11.9 - Type 2 diabetes mellitus without complications (5) Morbid obesity with BMI of 40.0-44.9, adult Current Visit: No Status: Chronic Assessment and plan: Patient needs diet control and lifestyle modification (6) CVA (cerebral vascular accident) Current Visit: No Status: Suspected Assessment and plan: We will continue aspirin, Plavix, and statin treatment. Neurology consult on case Qualifiers: CVA mechanism: occlusion Precerebral and cerebral artery: unspecified cerebral artery Qualified Code(s): I63.50 - Cerebral infarction due to unspecified occlusion or stenosis of unspecified cerebral artery - Time Spent With Patient 25 - 35 minutes - Subjective Interval history: Patient is a 66-year-old male admitted for right-sided facial drop, MRI shows acute stroke. Physical past medical history is significant for diabetes, CVA, hyperlipidemia, hypertension Patient was seen and examined. Persist right facial drop, no slurred speech, no limp weakness or numbness, no vision change. Vital signs stable. Patient had CVA in 2 months ago and had echo and carotid duplex done at that time. His MRA shows mild IC stenosis. Neurology consult appreciated. We will continue cardiac monitoring. - Constitutional Vitals: Temp Pulse Resp BP Pulse Ox 98.4 F 80 16 103/66 99 10/23/16 11:24 10/23/16 16:02 10/23/16 16:02 10/23/16 16:02 10/23/16 16:02 General appearance: Present: cooperative, A&O X 3, no acute distress, answers questions appropriately - Head Head exam: Present: atraumatic, normocephalic - Eye Eye exam: Present: PERRL, conjuntiva pink, sclera anicteric Pupils: Present: PERRL - Neck Neck exam general surgery: Present: supple, trachea midline. Absent: lymphadenopathy - Respiratory Respiratory exam: Present: CTAB. Absent: accessory muscle use, rales, rhonchi, wheezes - Cardiovascular Cardiovascular exam: Present: RRR, +S1, +S2. Absent: diastolic murmur, gallop, rubs, systolic murmur - GI/Abdominal GI/Abdominal exam: Present: normal bowel sounds, soft, no peritoneal signs. Absent: distended, tenderness - Extremities Exam Extremities exam: Present: warm, radial pulses palpable and symetrical. Absent : calf tenderness, cyanotic, pedal edema - Neurological Exam Neurological exam: Present: CN II-XII intact, oriented X3, no focal deficits, facial droop. Absent: pronater drift, speech deficit - Skin Skin exam: Present: dry, intact Internal Medicine: Result - Labs CBC & Chem 7: 10/23/16 02:31 10/23/16 02:31 - ABG Interpretation ABG results: PT/INR, D-dimer PT 12.0 Seconds (9.4-12.1) 10/23/16 02:31 Consult Discharge Plan - Plan Referrals: NO,PCP [Non-Partnered Physician] -
[2016-10-23] MEDS ORDERED: Insulin LISPRO 300 UNITS/3 ML VIAL SQ SCH (21:00)
[2016-10-24 05:23] LABS: Basophils # 0.1 K/mcL (0.0-0.2); Basophils % 0.6 %; Eosinophils # 0.6 K/mcL (0.0-0.6); Eosinophils % 7.7 %; Hematocrit 37.2 % (37.5-50.1); Hemoglobin 13.1 g/dL (12.9-16.9); Immature Granulocytes % 0.1 % (0-4); Lymphocytes # 2.3 K/mcL (0.6-4.6); Mean Corpuscular HGB Conc 35.2 g/dL (31.6-35.5); Mean Corpuscular Hemoglobin 30.8 pg (28.0-33.3); Mean Corpuscular Volume 87.5 fL (83.0-100.0); Mean Platelet Volume 9.8 fL (9.4-12.4); Monocytes # 0.6 K/mcL (0.0-1.3); Monocytes % 7.7 %; Neutrophils # 4.3 K/mcL (1.6-8.9); Platelet Count 152 K/mcL (140-400); Red Blood Count 4.25 M/mcL (4.19-5.50); Red Cell Distribution Width 12.4 % (11.5-14.5); Segmented Neutrophils % 54.9 %
[2016-10-24 05:37] LABS: BUN/Creatinine Ratio 14 (6-26); Blood Urea Nitrogen 12 mg/dL (8-26); Calcium 8.7 mg/dL (8.6-10.8); Carbon Dioxide 25 mEq/L (19-29); Chloride 102 mEq/L (98-109); Glucose 198 mg/dL (70-99); Osmolality,Calculated 289 (280-300); Potassium 3.6 mEq/L (3.5-4.5); Sodium 137 mEq/L (136-145); eGFR For African Americans > 60 (> 60); eGFR For Non-African Americans > 60 (> 60)
[2016-10-24] MEDS: *HR* Heparin 5,000 UNIT/ML VIAL SQ SCH (06:16)
[2016-10-24 07:53] VITALS: BP 111/72
[2016-10-24] MEDS: Aspirin 81 MG TAB.CHEW PO SCH (08:02)
[2016-10-24] MEDS: Insulin LISPRO 300 UNITS/3 ML VIAL SQ SCH ×2 (08:02→10:22)
[2016-10-24] MEDS ORDERED: Lisinopril 20 MG TABLET PO SCH (09:00)
--- NOTE | 2016-10-24 13:36 | Discharge Summary ---
Date of Encounter: 10/24/16 Time of Encounter: 13:00 - Discharge Diagnosis (1) Essential hypertension Priority: Secondary Status: Chronic (2) Hyperlipidemia Priority: Secondary Status: Chronic Qualifiers: Hyperlipidemia type: unspecified Qualified Code(s): E78.5 - Hyperlipidemia , unspecified (3) DVT prophylaxis Priority: Secondary Status: Acute (4) Diabetes Priority: Secondary Status: Chronic Qualifiers: Diabetes mellitus type: type 2 Diabetes mellitus complication status: without complication Diabetes mellitus sales account director insulin use: without sales account director use Qualified Code(s): E11.9 - Type 2 diabetes mellitus without complications (5) Morbid obesity with BMI of 40.0-44.9, adult Priority: Secondary Status: Chronic (6) CVA (cerebral vascular accident) Priority: Primary Status: Suspected Qualifiers: CVA mechanism: occlusion Precerebral and cerebral artery: unspecified cerebral artery Qualified Code(s): I63.50 - Cerebral infarction due to unspecified occlusion or stenosis of unspecified cerebral artery - Discharge Medications Prescriptions: Clopidogrel [Plavix] 75 mg PO DAILY #60 tablet Home Medications: Amlodipine [Norvasc] 5 mg PO DAILY 08/21/16 [History] Benazepril HCl [Lotensin] 40 mg PO DAILY 08/21/16 [History] Ergocalciferol (VITAMIN D2) [Vitamin D2] 50,000 unit PO QWEEK 08/21/16 [History] GlipiZIDE [Glipizide] 20 mg PO DAILY 08/21/16 [History] Hydrochlorothiazide 25 mg PO DAILY 08/21/16 [History] Aspirin [Lo-Dose Aspirin EC] 81 mg PO DAILY #30 tablet. 08/22/16 [Rx] Atorvastatin [Lipitor] 40 mg PO DAILY #30 tablet 08/22/16 [Rx] Metformin [Glucophage] 1,000 mg PO BID #40 tablet 08/22/16 [Rx] Clopidogrel [Plavix] 75 mg PO DAILY #60 tablet 10/24/16 [Rx] Allergies/Adverse Reactions: Allergies No Known Allergies Allergy (Verified 08/21/16 15:04) - Notes to Outpatient Provider Plavix 75 mg by mouth daily added to home medication list per neurology recommendation Date of admission: 10/23/16 18:12 Primary care physician: [facility] Discharging clinician: Rosy Stern Anticipated date of discharge: 03/08/17 - Patient Status Disposition: Home, Self-Care Condition: Good Functional capacity at discharge: independent ambulation Overall status at discharge: patient is back to baseline - Discharge Instructions Follow Up With: [facility] [Outside] - 11/06/16 12:30 pm Forms: ED Satisfaction Letter - Diet and Activity Activity: increase activity as tolerated Diet: diabetic diet Interval History: Mr. Thompson is a 66 year old male history of diabetes, CVA, hyperlipidemia, hypertension presented to the ER with complaints of right-sided facial droop. His symptoms began at approximately 12:30 AM. It was noted to have right- sided facial droop by his and he was also apparently slurring his words. He denies any other focal weakness or numbness. No seizure-like activity. No palpitations. No bowel bladder incontinence. In August, he was hospitalized with right upper extremity weakness. He was found to have acute infarct in the left precentral guide us. At that time the patient had stopped taking aspirin due to impending neck surgery. As such he was placed back on aspirin and statin and discharged home. He was not found to have any abnormal rhythm or significant carotid artery stenosis. Currently, he has been taking aspirin and statin as prescribed. Hospital course: Mr. Thompson is a 66 year old male admitted for right sided facial drop. MRI shows acute infarct. Patient had an echo and duplex carotid back in August (2 months ago). MRA shows mild stenosis of the internal carotid artery. Patient was placed on cardiac monitoring for over 24 hours and no significant arrythmia was found. Neurology consult was called. Patient was recommended to add Plavix. Swallowing evaluation done in the hospital and recommendations are followed. Patient's symptoms is stable, will discharge patient home and follow- up with PCP as outpatient. I saw and examined the patient today, he is awake alert, oriented 3. The old right sided facial drop, no other neurology deficit. Vital signs stable. Patient was educated to control blood pressure, blood sugar, keep on Plavix and aspirin and atorvastatin. Patient is stable to discharge home. - Time Spent with Patient Total time spent providing and/or coordinating discharge services: 40 minutes Greater than 30 minutes - Constitutional Vitals: Temp Pulse Resp BP Pulse Ox 98.4 F 75 16 111/72 95 10/24/16 07:46 10/24/16 07:46 10/24/16 07:46 10/24/16 07:46 10/24/16 07:46 General appearance: Present: cooperative, A&O X 3, no acute distress, answers questions appropriately - Head Head exam: Present: atraumatic, normocephalic - Eye Eye exam: Present: PERRL, conjuntiva pink, sclera anicteric Pupils: Present: PERRL - Neck Neck exam general surgery: Present: supple, trachea midline. Absent: lymphadenopathy - Respiratory Respiratory exam: Present: CTAB. Absent: accessory muscle use, rales, rhonchi, wheezes - Cardiovascular Cardiovascular exam: Present: RRR, +S1, +S2. Absent: diastolic murmur, gallop, rubs, systolic murmur - GI/Abdominal GI/Abdominal exam: Present: normal bowel sounds, soft, no peritoneal signs. Absent: distended, tenderness - Extremities Exam Extremities exam: Present: warm, radial pulses palpable and symetrical. Absent : calf tenderness, cyanotic, pedal edema - Neurological Exam Neurological exam: Present: CN II-XII intact, oriented X3, no focal deficits, facial droop. Absent: pronater drift, speech deficit - Skin Skin exam: Present: dry, intact
--- NOTE | 2016-10-24 15:57 | Neurology Progress Note ---
Date of Encounter: 10/24/16 Time of Encounter: 08:25 Assessment and Plan (1) CVA (cerebral vascular accident) Status: Suspected Patient seemed to be doing well no evidence of any embolic source particularly contacted and MRA of the brain was negative no evidence of any arrhythmia at this time I would suggest that we should continue him on antiplatelet therapy along with statin. No evidence of any significant focal motor weakness do not think that he would require any physical therapy or rehabilitation he could be seen in the neurology clinic as an outpatient he will be following up with his primary care physician for the management of his blood pressure and other medical condition Qualifiers: Precerebral and cerebral artery: unspecified cerebral artery Qualified Code (s): I63.50 - Cerebral infarction due to unspecified occlusion or stenosis of unspecified cerebral artery Subjective Interval history: he seems to be stable no other acute findings mild facial droop, seems to be improving MRA of the neck did not show any critical stenosis and MRA of the head was also negative. No evidence of any cardiac arrhythmias echocardiogram about a month ago was negative Overall he is stable and doing good Objective - Constitutional Vitals: Temp Pulse Resp BP Pulse Ox 98.4 F 75 16 111/72 95 10/24/16 07:46 10/24/16 07:46 10/24/16 07:46 10/24/16 07:46 10/24/16 07:46 - Neurological Exam Sensorimotor examination: Present: intact Motor Examination: Present: full strength in all major muscle groups Motor examination - left side: 5/5: deltoids, biceps, triceps, wrist flexion, wrist extension, hip flexors, business controller, quadriceps, tibialis Anterior, toe extension (EHL), plantarflexion Sensation intact: Present: intact Mental Status Examination: Present: awake, alert, oriented to person, oriented to place, oriented to time, follows commands appropriately, answers questions appropriately, no agnosia, no aphasia, no aproxia Cranial nerve examination: Present: PERRL, EOMI, visual powers intact, corneal reflexes brisk symmetrically, sensory to face intact, mastication intact, no dysarthria, hearing is intact symmetrically, soft palate elevates bilaterally upon phonation, gag reflex intact, flexes SCM and trapezius muscles symmetrically with full power, tongue protrudes midline, no atrophy or facial fasiculations present Cranial Nerve Exam: facial droop: Right Cerebellar examination: Present: no dysmetria, performs finger to nose and heel to lund symmetrically without ataxia, no truncal ataxia, no difficulty with rapid alternating movements - Stroke Contraindication Rehab Services Not Assessed: Returned to Prior Level of Function Results - Laboratory Findings CBC and BMP: 10/24/16 05:08 10/24/16 05:08 Abnormal lab findings: Abnormal lab results Hct 37.2 % (37.5-50.1) L 10/24/16 05:08 Glucose 198 mg/dL (70-99) H 10/24/16 05:08 POC Glucose 243 (58-89) H 10/24/16 07:50 Urine Clarity Cloudy (Clear) A 10/23/16 03:38 Urine Microscopic RBC 3-5 per hpf (0-3) H 10/23/16 03:38 Ur Squamous Epith Cells Many per lpf (None-Few) H 10/23/16 03:38 Consult Discharge Plan - Plan Instructions: Clopidogrel (By mouth), Ischemic Stroke (DC) Referrals: [facility] [Outside] - 11/06/16 12:30 pm Prescriptions: Clopidogrel [Plavix] 75 mg PO DAILY #60 tablet
== END 2016-10-24 14:53 | disposition home or self-care (01) | DRG 65 ==
LOC: EMEROO 02:05 → 2NENU 02:05 → SUATTDRO 03:27 → 2NENU 04:02
PROVIDERS: ADMIT Internal Medicine; ATTEND Internal Medicine